=== PATIENT | female | born 1945 ===

== ENCOUNTER 2025-06-30 15:36 | Emergency (ER) | payer MEDICARE ==
[2025-06-30 16:01] LABS: BASOPHILS ABSOLUTE AUTO 0.02 K/uL (0.00-0.20); BASOPHILS PERCENT AUTO 0.3 % (0.0-2.0); EOSINOPHILS ABSOLUTE AUTO 0.11 K/uL (0.00-0.50); EOSINOPHILS PERCENT AUTO 1.8 % (0.0-5.0); IMMATURE GRAN ABSOLUTE AUTO 0.00 10^3/uL (0.00-0.04); IMMATURE GRAN PERCENT AUTO 0.0 % (0.0-0.4); LYMPHOCYTES ABSOLUTE AUTO 2.13 K/uL (0.50-3.50); LYMPHOCYTES PERCENT AUTO 35.1 % (10.0-50.0); MONOCYTES ABSOLUTE AUTO 0.74 K/uL (0.00-1.00); MONOCYTES PERCENT AUTO 12.2 % (2.0-14.0); NEUTROPHILS ABSOLUTE AUTO 3.06 K/uL (1.40-7.00); NEUTROPHILS PERCENT AUTO 50.6 % (45.0-80.0); PLATELET COUNT,PLT 129 K/uL (150-350); RED BLOOD CELL COUNT 3.86 M/uL (3.77-5.09); RED CELL DISTRIBUTION WIDTH 11.4 % (11.2-14.1); WHITE BLOOD CELL COUNT,WBC 6.1 K/uL (4.0-10.2)
[2025-06-30 16:27] LABS: LACTIC ACID 1.7 mmol/L (0.4-2.0)
[2025-06-30 16:34] LABS: ALANINE AMINOTRANSFERASE,ALT 32.0 U/L (12-78); ASPARTATE AMNIOTRANSFERASE,AST 25.0 U/L (15-37); BILIRUBIN TOTAL 0.4 mg/dL (0.2-1.0); BLOOD UREA NITROGEN,BUN 38.0 mg/dL (7-18); CARBON DIOXIDE,CO2 25.8 mmol/L (21.0-32.0); CHLORIDE,CL 104.0 mmol/L (98-107); CREATININE 0.7 mg/dL (0.51-1.17); EST CRCL DRUG DOSING (CG) 50.7 mL/min; GLUCOSE RANDOM 138.0 mg/dL (70-99); POTASSIUM,K 4.0 mmol/L (3.5-5.1); PRO B-TYPE NATRIUR PEPT,BNPPRO 234.0 pg/mL (0-125); PROTEIN TOTAL,TP 6.9 g/dL (6.4-8.2); SODIUM,NA 140.0 mmol/L (136-145)
[2025-06-30 16:44] LABS: ESTIMATED GFR 87.0 mL/min (>=60)
[2025-06-30 16:45] LABS: INR 1.4 (0.9-1.1); PTT,PARTIAL THROMBOPLSTIN TIME 25.6 SEC (23.8-34.4)
== END 2025-06-30 17:55 ==
LOC: LL.ED 15:36
DX: R00.0 Tachycardia, unspecified (principal); E86.0 Dehydration; Z79.899 Other long term (current) drug therapy
CPT/HCPCS: 36415; 80053; 83605; 83735; 83880; 84484; 85025; 85610; 85730; 87428-QW; 96360; 99284-25; J7030